=== PATIENT | female | born 1955 | race Caucasian/White ===

== ENCOUNTER 2022-02-01 21:00 | Inpatient (IN) | payer OTHER ==
[~2022-02-01] VITALS: Ht 149.9 cm; Wt 47.6 kg
--- NOTE | 2022-02-01 21:11 | NUR ---
Placed in room 01 . Placed on validation consultant, blood pressure machine and pulse oximeter. To gown for exam. Side rails up.
--- NOTE | 2022-02-01 21:17 | NUR ---
PT BIB [id number]. 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 PT HX OF PARKINSON'S DIS, PNUEMONIA. ALOC TO DAY "MORE THAN NORMAL"/ FAMILY. PT NON VERBAL. BG-75 500CC NS TO RIGHT F/A VIA 18G AT TKO/ MEDIC. JUAN PABLO- DAUGHTER [phone] PT ARRIVED EYES OPEN, MUTE. LAYING ON LEFT SIDE/ CONTRACTURED. POSITION OF COMFORT WITH PILLOWS FOR SUPPORT ON BED #1.
[2022-02-01 21:22] VITALS: BP_SYST 119
[2022-02-01] MEDS ORDERED: NACL 0.9% 1,000 ML IV ONE ×2 (21:30→22:45)
[2022-02-01] MEDS ORDERED: AUG875 PO (21:59)
[2022-02-01] MEDS ORDERED: CARB-290 PO (21:59)
[2022-02-01] MEDS ORDERED: DEXL60CA4 PO (21:59)
[2022-02-01] MEDS ORDERED: MOB7.5 PO (21:59)
[2022-02-01] MEDS ORDERED: PRED5TAB PO (21:59)
[2022-02-01] MEDS ORDERED: ASA81 PO (21:59)
[2022-02-01] MEDS ORDERED: ROTI1PAT7 TP (21:59)
[2022-02-01 22:12] LABS: BASOPHILS % (AUTO) 0.5 % (0.0-2.0); EOSINOPHILS # (AUTO) 0.1 K/uL (0.0-0.4); EOSINOPHILS % (AUTO) 1.5 % (0.0-4.0); HEMATOCRIT 31.9 % (36-48); HEMOGLOBIN 10.5 g/dL (12.0-16.0); LYMPHOCYTES # (AUTO) 1.4 K/uL (1.0-5.5); LYMPHOCYTES % (AUTO) 26.1 % (20.5-51.5); MEAN CORPUSCULAR HEMOGLOBIN 26 pg (27-31); MEAN CORPUSCULAR HGB CONC 33 % (32-36); MEAN CORPUSCULAR VOLUME 78 fL (79.0-98.0); MONOCYTES # (AUTO) 0.3 K/uL (0.0-1.0); MONOCYTES % (AUTO) 6.6 % (1.7-9.3); NEUTROPHILS # (AUTO) 3.5 K/uL (1.8-7.7); NEUTROPHILS % (AUTO) 65.3 % (40.0-70.0); PLATELET COUNT (AUTO) 333 K/uL (130-430); RED CELL DISTRIBUTION WIDTH 17.7 % (9.0-15.0); WHITE BLOOD COUNT (AUTO) 5.3 K/uL (4.8-10.8)
[2022-02-01 22:25] LABS: ANION GAP 7 (5-15); CALCIUM 8.1 mg/dL (8.4-11.0); CHLORIDE 110 mmol/L (98-107); CREATININE 0.44 mg/dL (0.55-1.30); GLUCOSE 71 mg/dL (70-99); POTASSIUM 3.3 mmol/L (3.5-5.1); SODIUM SERUM 143 mmol/L (136-145); UREA NITROGEN, BLOOD 20 mg/dL (8-21)
[2022-02-01 22:34] LABS: INR 1.2 (0.8-1.2); PROTHROMBIN TIME 11.6 SECS (9.5-12.5)
[2022-02-01 22:37] LABS: ALANINE AMINOTRANSFERASE 17 U/L (12-78); ALBUMIN 2.2 g/dL (3.4-4.8); ASPARTATE AMINOTRANSFERASE 17 U/L (10-37); TOTAL BILIRUBIN 0.4 mg/dL (0.0-1.0)
[2022-02-01 22:45] LABS: GFR AFRICAN AMERICAN 185 mL/min (>90)
--- NOTE | 2022-02-01 22:48 | NUR ---
INFLUENZA AND COVID SPECIMEN SENT TO LAB.
--- NOTE | 2022-02-01 22:56 | NUR ---
CODY Hendricks at bedside examining patient.
--- NOTE | 2022-02-01 23:00 | NUR ---
TRAVIS JUNG UA QUICK CATH COLLECTED AND SENT TO LAB
--- NOTE | 2022-02-01 23:00 | NUR ---
COVID AND FLU NASAL SWABS COLLECTED AND SENT TO LAB PER COATING TECHNICIAN
[2022-02-01 23:10] LABS: BILIRUBIN,URINE NEGATIVE (NEGATIVE); BLOOD, URINE 2+ (NEGATIVE); CLARITY/URINE CLEAR (CLEAR); COLOR,URINE ORANGE (YELLOW); GLUCOSE,URINE NEGATIVE (NEGATIVE); KETONES,URINE TRACE (NEGATIVE); LEUKOCYTE ESTERASE ,URINE NEGATIVE (NEGATIVE); NITRITE, URINE POSITIVE (NEGATIVE); PH,URINE 7.5 (5.0-8.0); PROTEIN URINE NEGATIVE (NEGATIVE)
[2022-02-01 23:29] LABS: BACTERIA,URINE MANY /HPF (None Seen)
[2022-02-02] MEDS ORDERED: cefTRIAXone 1 GM in D5W 50 ML IV ONE (01:30)
--- NOTE | 2022-02-02 01:30 | NUR ---
Admit bed requested Patient will be admitted to care of . Admitted to TELE unit. Diagnosis COVID PNA Inpatient (Yes or No) YES Observation (Yes or No) NO Orientation concerns or request close to nursing station (Yes or No) YES Covid Status POSITIVE On vent or bipap NO Isolation requirements NO Needs a sitter NO From Home (Yes or if No enter name of facility) YES Requires Dialysis (Yes or No) NO Med Rec Completed (Yes of No) PENDING
[2022-02-02] MEDS ORDERED: cefTRIAXone 1 GM VIAL ONE (01:45)
--- NOTE | 2022-02-02 04:20 | NUR ---
ADMISSION NOTE Received patient from ER via ricardo, received report from An ROBLES. Patient admitted with diagnosis of Covid PNA. Patient oriented to hospital routine, call light, toileting and safety-patient verbalized understanding.
--- NOTE | 2022-02-02 04:30 | NUR ---
TRAVIS JUNG PT STABLE FOR ADMIT TO ROOM #119B. TO ROOM VIA [facility] WITH RN ON MONITOR AND MASK. REPORT TO TRAVIS DEYR
[2022-02-02] MEDS: NACL 0.9% 1,000 ML IV SCH ×4 (04:49→22:18)
--- NOTE | 2022-02-02 05:00 | NUR ---
Initial RN notes Pt awake, non-verbal, VSS, afebrile. O2 sat 97% on 3L via NC. Sacral wound dressing changed noted small serousangenous drainage, no odor. L. heel pressure sore covered with optifoam dressing and floated on a pillow. IVF infusing R. FA 18G no s/s infiltration. Bed low, locked, siderails up x3, alarm on. Pt maintained NPO. Per ER nurse, daughter will warehouse order picker her belongings. To endorse to AM nurse.
[2022-02-02 05:18] VITALS: BP_SYST 112
--- NOTE | 2022-02-02 06:40 | NUR ---
Closing notes Pt asleep, no s/s distress noted. O2 3L via NC on. IVF infusing at ordered rate R. FA 18G clear and patent. Pt repostioned with pillow support. Mingo heels floated on a pillow. Call light within reach. Bed low, locked, siderails up x3, alarm on. Droplet isolation maintained. To endorse to AM nurse.
--- NOTE | 2022-02-02 07:57 | NUR ---
CONSULTATION PAGED REASON FOR CONSULTATION:COVID PNEUMONIA WAS CONSULT CALLED?Y -PERSON WHO WAS NOTIFIED:CINDY CONSULTING PHYSICIAN:YONY MORE( EXTRUDER TENDER) AGENCY OWNER SPECIALTY:PULMONARY AGENCY OWNER PHONE NUMBER:[phone] REQUESTING PHYSICIAN:TOBIAS PURCELL
[2022-02-02 08:00] VITALS: BP_SYST 130
[2022-02-02] MEDS ORDERED: DOCUSATE SODIUM 100 MG CAPSULE PO PRN (08:00)
[2022-02-02] MEDS ORDERED: AZITHROMYCIN 250 MG TABLET PO ONE (08:00)
[2022-02-02] MEDS ORDERED: ACETAMINOPHEN 325 MG TABLET PO PRN (08:00)
[2022-02-02] MEDS ORDERED: NALOXONE HCL 0.4 MG/ML AMP (NARCAN) IVP PRN ×2 (08:00)
[2022-02-02] MEDS ORDERED: MORPHINE 2 MG/ML INJ. SYRINGE IVP PRN (08:00)
[2022-02-02] MEDS ORDERED: LORazepam 2 MG/ML VIAL IVP PRN (08:00)
[2022-02-02] MEDS ORDERED: ZOLPIDEM TARTRATE 5 MG TABLET PO PRN (08:00)
[2022-02-02] MEDS ORDERED: ONDANSETRON HCL 4 MG/2 ML VIAL IVP PRN (08:00)
[2022-02-02] MEDS ORDERED: POTASSIUM CHLORIDE 20 MEQ TAB.PRT.SR PO PRN (08:00)
[2022-02-02] MEDS ORDERED: MAGNESIUM SULFATE 50 ML IV PRN (08:00)
[2022-02-02] MEDS ORDERED: MUPIROCIN 2% TOPICAL OINTMENT 22 GM NS PRN (08:00)
--- NOTE | 2022-02-02 08:40 | NUR ---
SPEECH THERAPIST TECHNICIAN OPERATIONS MANAGER/COORDINATOR Vicki responded to a generated social service , details "SW notification. Pt at suicidal risk". OPERATIONS MANAGER/COORDINATOR reviewed patient's admission assessment and the following was located; Wish to be - Unable to assess Suicidal thoughts- unable to assess [place] Suicide Severity Rating Scale initiated- unable to assess Refer to [employer] for Suicide Risk- YES OPERATIONS MANAGER/COORDINATOR consulted with assigned RN who stated this was a mistake on assessment. She shared patient is not suicidal.
--- NOTE | 2022-02-02 08:58 | NUR ---
Patient lying in bed quietly with eyes open. She arouses spontaneously. She denies any dyspnea or SOB. HOB elevated semifowler's position and pt suctioned orally. O2 @ 3l NC in use- O2 sat 100%. Removed moderate amount of white secretions. Pt is able to communicate wants et needs. Pt is NPO due to dysphagia- awaiting a swallow test via speech therapy for po consumption. Will continue to monitor.
[2022-02-02] MEDS: CARBIDOPA/LEVODOPA 25/100 MG TABLET PO SCH ×4 (09:00→20:03)
[2022-02-02] MEDS: ASPIRIN 81 MG TAB.CHEW PO SCH (09:00)
[2022-02-02] MEDS ORDERED: ROTIGOTINE TP SCH (09:00)
[2022-02-02] MEDS ORDERED: predniSONE 5 MG TABLET PO SCH (09:00)
[2022-02-02] MEDS: ENOXAPARIN SODIUM 40 MG/0.4 ML SYRINGE SUBCUT SCH (09:54)
[2022-02-02 11:42] VITALS: BP_SYST 98
[2022-02-02] MEDS ORDERED: IPRATROPIUM/ALBUTEROL SULFATE 3 ML AMPUL.NEB (DUONEB) INH PRN (15:15)
[2022-02-02 15:38] VITALS: BP_SYST 100
--- NOTE | 2022-02-02 15:46 | NUR ---
ST EVALUATION COMPLETED. ST TX NOT INDICATED AT THIS TIME. RECOMMEND NPO WITH ALTERNATIVE MEANS OF NUTRITION DUE TO POOR SWALLOW FUNCTION AND SAFETY.
--- NOTE | 2022-02-02 19:15 | NUR ---
OPENING NOTES Patient resting in bed - no s/s pain or distress noted. Respirations even and unlabored - head of bed elevated 3L NC. IV site patent - no s/s redness, infection, or infiltration. Bed locked and in lowest position. Bed alarm on.
[2022-02-02 20:00] VITALS: BP_SYST 98
[2022-02-02] MEDS: DEXAMETHASONE SOD PHOSPHATE 10 MG/ML VIAL IVP SCH (20:37)
[2022-02-03] VITALS: BP_SYST 100
[2022-02-03] MEDS: NACL 0.9% 1,000 ML IV SCH (02:30)
[2022-02-03 06:52] LABS: BASOPHILS % (AUTO) 0.2 % (0.0-2.0); HEMOGLOBIN 11.1 g/dL (12.0-16.0); LYMPHOCYTES # (AUTO) 0.5 K/uL (1.0-5.5); LYMPHOCYTES % (AUTO) 7.6 % (20.5-51.5); MEAN CORPUSCULAR HEMOGLOBIN 26 pg (27-31); MEAN CORPUSCULAR HGB CONC 33 % (32-36); MEAN CORPUSCULAR VOLUME 79 fL (79.0-98.0); MONOCYTES % (AUTO) 0.7 % (1.7-9.3); NEUTROPHILS # (AUTO) 5.7 K/uL (1.8-7.7); NEUTROPHILS % (AUTO) 91.5 % (40.0-70.0); PLATELET COUNT (AUTO) 281 K/uL (130-430); RED BLOOD CELL COUNT(AUTO) 4.33 MIL/uL (4.2-6.2); RED CELL DISTRIBUTION WIDTH 17.5 % (9.0-15.0); WHITE BLOOD COUNT (AUTO) 6.2 K/uL (4.8-10.8)
--- NOTE | 2022-02-03 07:25 | NUR ---
CLOSING NOTES Patient resting in bed - no s/s pain or distress noted. Respirations even and unlabored - head of bed elevated 3L NC. IV site patent - no s/s redness, infection, or infiltration. Bed locked and in lowest position. Bed alarm on. Approximately 0430 dressings and linens changed. Patient cleaned.
[2022-02-03 07:40] VITALS: BP_SYST 112
--- NOTE | 2022-02-03 07:42 | NUR ---
RN OPENING NOTE REPORT WAS ENDORSED BY NIGHT NURSE. PATIENT IS AWAKE AND ALERT PROVIDED WITH WARM BLANKET REQUESTED. VITAL SIGNS ARE STABLE EDUCATED SHADING PAINTER LIGHT FOR ASSISTANCE, CALL LIGHT IS WITH HER, PATIENT IS CONFUSED. PATIENT SHOWS NO SIGNS OF ANY DISTRESS. NO OTHER NEEDS AT THIS TIME.
[2022-02-03 08:04] LABS: CALCIUM 8.4 mg/dL (8.4-11.0); CREATININE 0.37 mg/dL (0.55-1.30); POTASSIUM 3.8 mmol/L (3.5-5.1)
[2022-02-03] MEDS: cefTRIAXone 1 GM in D5W 50 ML IV SCH (08:54)
[2022-02-03] MEDS: KCL 20 mEq in D5NS 1000 mL 1,000 ML IV SCH ×2 (08:54→21:00)
[2022-02-03] MEDS: ASPIRIN 81 MG TAB.CHEW PO SCH (08:55)
[2022-02-03] MEDS: CARBIDOPA/LEVODOPA 25/100 MG TABLET PO SCH ×4 (08:55→20:44)
[2022-02-03] MEDS: ENOXAPARIN SODIUM 40 MG/0.4 ML SYRINGE SUBCUT SCH (08:55)
[2022-02-03] MEDS ORDERED: AZITHROMYCIN 250 MG TABLET PO SCH (09:00)
--- NOTE | 2022-02-03 09:18 | NUR ---
medication patients scheduled medication given per order. po medication held duet o not safe failed swallow vaishnavi spoke with patients daughter and she states her mom just recently started to decline and unable to eat. she would like to talk to doctor about nutrition needs. patient shows no signs of any distress, educated collection administrator light as well as phone but patient is confused. both are with in reach. patient was able to speak to daughter on phone.
[2022-02-03 10:15] LABS: ALBUMIN 2.2 g/dL (3.4-4.8); BILIRUBIN,DIRECT 0.3 mg/dL (0.0-0.3); TOTAL BILIRUBIN 0.5 mg/dL (0.0-1.0)
--- NOTE | 2022-02-03 11:30 | NUR ---
rn rounding incotience care provided to patient. no signs of any distress, patient's breathing is equal and non labored. patient educated optical effects layout person light for assistance. call light is with her. patient keeps asking for water and pills educated not safe to have anything orally didnt pass her swallow eval she says ok. no other needs at this time.
[2022-02-03 12:27] VITALS: BP_SYST 134
--- NOTE | 2022-02-03 13:30 | NUR ---
rn rounding incontinence care provided to patient. patient shows no signs of any distress, no complaints at this time. call light is with her educated to use for assistance. no other needs at this time.
--- NOTE | 2022-02-03 15:23 | NUR ---
Dietitian Recommendations * Consider alternative nutrition support within 1 week (EN versus TPN/PPN to optimize gut health) * If planning for EN support (NGT/OGT/GT), consider Vital AF 1.2 at 45 ml/hr (goal rate), Free Water Flush: 150 ml Q6h Provides: 1296 kcal/day, 81 gm protein/day, and 1476 ml free water/day Meets: 91% of lower end of estimated caloric needs, 113% of upper end of estimated protein needs, and 105% of lower end of estimated fluid needs LP, RD Please refer to Nutrition Assessment for details. Addendum: 02/03/22 at [address] Amended: Links added.
[2022-02-03 16:00] VITALS: BP_SYST 117
--- NOTE | 2022-02-03 16:03 | NUR ---
dr. Villegas spoke with patient stated ok to speak with all three of her children, obtained her son and other daughter fely information and placed in the chart. i spoke with patient's daughter deana she wants to speak with md regard G -tube placement, the patient who is AO x3 states she does not want any tube, the son is also stating the he does not thing his mom would want the tube. I spoke with md and informed him he stated he will talk to patient tomorrow then the family. patient has no other needs at this time. call light is with her educate to use for assistance.
[2022-02-03] MEDS: DEXAMETHASONE SOD PHOSPHATE 10 MG/ML VIAL IVP SCH (18:51)
--- NOTE | 2022-02-03 18:52 | NUR ---
rn closing note patient is awake and alert, patient shows no signs of any distress, breathing is equal and non labored,patient has call light with her educated to use call light for assistance. no complaints no other needs
[2022-02-03 19:35] VITALS: BP_SYST 114
--- NOTE | 2022-02-03 19:35 | NUR ---
INITIAL NOTE AT INITIAL ASSESSMENT, PATIENT IS RESTING IN BED, STABLE, NO SIGNS OF RESPIRATORY DISTRESS. PATIENT VERBALIZES NO PAIN. PLAN OF CARE FOR THE EVENING IS COMMUNICATED WITH THE PATIENT. PATIENT IS SATURATING 100% ON ROOM AIR AT THIS TIME WITHOUT SUPPLEMENTAL OXYGEN NEEDED. BED IS LOCKED, ALARMED, AND AT THE LOWEST LEVEL. FALL, SAFETY, RESPIRATORY, ASPIRATION, AND ISOLATION PRECAUTIONS WILL BE IN PLACE THROUGHOUT THE SHIFT.
--- NOTE | 2022-02-03 20:30 | NUR ---
HYGIENE CARE HYGIENE CARE PROVIDED. PATIENT REPOSITIONED FOR COMFORT. CALL LIGHT PLACED WITHIN REACH. BED IS LOCKED, ALARMED, AND AT THE LOWEST LEVEL.
[2022-02-04 00:45] VITALS: BP_SYST 136
--- NOTE | 2022-02-04 06:35 | NUR ---
CLOSING NOTE PATIENT REMAINED WEAK THROUGHOUT THE SHIFT, PATIENT SLEPT WELL DURING THE SHIFT. AT THIS TIME, PATIENT IS RESTING IN BED, STABLE, NO SIGNS OF RESPIRATORY DISTRESS. BED IS LOCKED, ALARMED, AND AT THE LOWEST LEVEL. FALL, SAFETY, RESPIRATORY, ASPIRATION, AND ISOLATION PRECAUTIONS HAVE BEEN TAKEN THROUGHOUT THE SHIFT. WILL CONTINUE TO MONITOR UNTIL SHIFT REPORT IS GIVEN AT BEDSIDE TO AM NURSE.
[2022-02-04 08:17] LABS: BASOPHILS % (AUTO) 0.4 % (0.0-2.0); HEMATOCRIT 35.4 % (36-48); HEMOGLOBIN 11.6 g/dL (12.0-16.0); LYMPHOCYTES # (AUTO) 0.7 K/uL (1.0-5.5); LYMPHOCYTES % (AUTO) 11.1 % (20.5-51.5); MEAN CORPUSCULAR HEMOGLOBIN 26 pg (27-31); MEAN CORPUSCULAR HGB CONC 33 % (32-36); MEAN CORPUSCULAR VOLUME 78 fL (79.0-98.0); MONOCYTES # (AUTO) 0.2 K/uL (0.0-1.0); MONOCYTES % (AUTO) 2.7 % (1.7-9.3); NEUTROPHILS # (AUTO) 5.5 K/uL (1.8-7.7); NEUTROPHILS % (AUTO) 85.8 % (40.0-70.0); PLATELET COUNT (AUTO) 293 K/uL (130-430); RED BLOOD CELL COUNT(AUTO) 4.54 MIL/uL (4.2-6.2); RED CELL DISTRIBUTION WIDTH 17.5 % (9.0-15.0); WHITE BLOOD COUNT (AUTO) 6.4 K/uL (4.8-10.8)
--- NOTE | 2022-02-04 08:19 | NUR ---
DR. Grace AT [facility] MD SPOKE WITH PATIENT AND PATIENT WOULD LIKE TO TRY SWALLOW EVAL AGAIN STATES SHE FEELS BETTER TODAY.
[2022-02-04 08:28] VITALS: BP_SYST 105
[2022-02-04] MEDS: CARBIDOPA/LEVODOPA 25/100 MG TABLET PO SCH ×4 (08:29→20:50)
[2022-02-04] MEDS: ASPIRIN 81 MG TAB.CHEW PO SCH (08:29)
[2022-02-04] MEDS: cefTRIAXone 1 GM in D5W 50 ML IV SCH (08:29)
[2022-02-04] MEDS: ENOXAPARIN SODIUM 40 MG/0.4 ML SYRINGE SUBCUT SCH (08:30)
--- NOTE | 2022-02-04 08:30 | NUR ---
MEDICATION PATIENTS SCHEDULED MEDICATION GIVEN PER ORDER. PATIENT IS AWAKE AND ALERT, STATING SHE DOESN'T FEEL SICK ANYMORE THAT SHE FEELS ALOT BETTER THEN YESTERDAY. PATIENT PROVIDED WITH INCONTINENCE CARE. PATIENT EDUCATED HORSERADISH GRINDER LIGHT AND PHONE. BOTH ARE WITH HER SO SHE CAN REACH THEM. NO COMPLAINTS AT THIS TIME. NO SIGNS OF ANY DISTRESS. PATIENT IS ON ROOM AIR AND SPO2 AT 98%
[2022-02-04 09:11] LABS: ALBUMIN 2.4 g/dL (3.4-4.8); CALCIUM 8.7 mg/dL (8.4-11.0); CREATININE 0.32 mg/dL (0.55-1.30); POTASSIUM 3.9 mmol/L (3.5-5.1); TOTAL BILIRUBIN 0.3 mg/dL (0.0-1.0)
[2022-02-04 12:00] VITALS: BP_SYST 113
[2022-02-04] MEDS: KCL 20 mEq in D5NS 1000 mL 1,000 ML IV SCH (13:35)
--- NOTE | 2022-02-04 13:43 | NUR ---
iv fluid patients iv fluid hung per order. patient is awake and alert laying in bed, incontinence care provided as needed. patient has no other needs at this time. Call light and phone are with educated to use for assistance.
[2022-02-04 16:00] VITALS: BP_SYST 112
--- NOTE | 2022-02-04 17:14 | NUR ---
medication Patients scheduled medication given per order. Patient is awake and alert laying in bed no complaints at this time. all safety precautions in place, call light is with her. incontinence care provided.
[2022-02-04] MEDS: DEXAMETHASONE SOD PHOSPHATE 10 MG/ML VIAL IVP SCH (18:58)
--- NOTE | 2022-02-04 19:32 | NUR ---
rn closing note report was endorsed to night nurse. no signs of any distress, breathing is equal and non labored. patient has all safety precaution in place. no other needs at this time. patient has no complaints at this time.
--- NOTE | 2022-02-04 19:42 | NUR ---
OPENING NOTES: Patient received from AM shift. Patient is unable to communicate needs no s/s of distress is noted at this time. Patient is on RA with chest rise even and unlabored. Patient is on tele monitoring with NSR. Safety measures are in place as per protocol. Will resume care and continue to monitor throughout the shift.
[2022-02-04 20:00] VITALS: BP_SYST 107
[2022-02-05 00:43] VITALS: BP_SYST 108
[2022-02-05] MEDS: KCL 20 mEq in D5NS 1000 mL 1,000 ML IV SCH ×2 (05:55→18:30)
--- NOTE | 2022-02-05 06:44 | NUR ---
CLOSING NOTES: Patient is in bed resting no s/s of distress is noted. Patient is on the phone with her son and does not verbalize any needs at this time. Safety measures are in place as per protocol and all current shift needs have been met at this time. Patient remains NPO pending swallow eval. Will differ further care to AM shift for continuity of care.
[2022-02-05 07:01] LABS: BASOPHILS % (AUTO) 0.4 % (0.0-2.0); HEMATOCRIT 35.6 % (36-48); HEMOGLOBIN 11.6 g/dL (12.0-16.0); LYMPHOCYTES # (AUTO) 0.5 K/uL (1.0-5.5); MEAN CORPUSCULAR HEMOGLOBIN 25 pg (27-31); MEAN CORPUSCULAR HGB CONC 33 % (32-36); MEAN CORPUSCULAR VOLUME 78 fL (79.0-98.0); MONOCYTES # (AUTO) 0.1 K/uL (0.0-1.0); NEUTROPHILS # (AUTO) 3.8 K/uL (1.8-7.7); NEUTROPHILS % (AUTO) 84.6 % (40.0-70.0); PLATELET COUNT (AUTO) 267 K/uL (130-430); RED BLOOD CELL COUNT(AUTO) 4.59 MIL/uL (4.2-6.2); RED CELL DISTRIBUTION WIDTH 18.3 % (9.0-15.0); WHITE BLOOD COUNT (AUTO) 4.5 K/uL (4.8-10.8)
[2022-02-05] MEDS: cefTRIAXone 1 GM in D5W 50 ML IV SCH (07:01)
[2022-02-05 07:59] LABS: CALCIUM 8.4 mg/dL (8.4-11.0); CREATININE 0.38 mg/dL (0.55-1.30); POTASSIUM 3.9 mmol/L (3.5-5.1)
[2022-02-05 08:00] VITALS: BP_SYST 113
[2022-02-05] MEDS: CARBIDOPA/LEVODOPA 25/100 MG TABLET PO SCH ×4 (09:00→22:01)
[2022-02-05] MEDS: ASPIRIN 81 MG TAB.CHEW PO SCH (09:00)
[2022-02-05] MEDS: ENOXAPARIN SODIUM 40 MG/0.4 ML SYRINGE SUBCUT SCH (09:49)
[2022-02-05 10:14] VITALS: BP_SYST 108
[2022-02-05 12:00] VITALS: BP_SYST 109
--- NOTE | 2022-02-05 13:39 | NUR ---
ST EVALUATION COMPLETED. ST TX NOT INDICATED AT THIS TIME. RECOMMEND PO DIET OF PUREE/NECTAR THICK LIQUIDS WITH 1:1 FEEDER AND FULL ASPIRATION PRECAUTIONS.
--- NOTE | 2022-02-05 14:04 | NUR ---
Discharge Planning: DCP faxed pt referral to [facility] [phone] patient is covid positive. DCP to follow up.
[2022-02-05 16:00] VITALS: BP_SYST 111
[2022-02-05] MEDS: DEXAMETHASONE SOD PHOSPHATE 10 MG/ML VIAL IVP SCH (18:30)
[2022-02-05 20:00] VITALS: BP_SYST 111
[2022-02-05] MEDS: MORPHINE 2 MG/ML INJ. SYRINGE IVP PRN (22:02)
[2022-02-06] VITALS: BP_SYST 103
[2022-02-06] MEDS: MORPHINE 2 MG/ML INJ. SYRINGE IVP PRN ×2 (06:25→21:20)
[2022-02-06 06:54] LABS: BASOPHILS % (AUTO) 0.1 % (0.0-2.0); HEMATOCRIT 35.6 % (36-48); HEMOGLOBIN 11.8 g/dL (12.0-16.0); LYMPHOCYTES # (AUTO) 0.8 K/uL (1.0-5.5); LYMPHOCYTES % (AUTO) 12.7 % (20.5-51.5); MEAN CORPUSCULAR HEMOGLOBIN 25 pg (27-31); MEAN CORPUSCULAR HGB CONC 33 % (32-36); MEAN CORPUSCULAR VOLUME 77 fL (79.0-98.0); MONOCYTES # (AUTO) 0.3 K/uL (0.0-1.0); MONOCYTES % (AUTO) 5.8 % (1.7-9.3); NEUTROPHILS # (AUTO) 4.8 K/uL (1.8-7.7); NEUTROPHILS % (AUTO) 81.4 % (40.0-70.0); PLATELET COUNT (AUTO) 251 K/uL (130-430); RED BLOOD CELL COUNT(AUTO) 4.62 MIL/uL (4.2-6.2); RED CELL DISTRIBUTION WIDTH 18.4 % (9.0-15.0); WHITE BLOOD COUNT (AUTO) 5.9 K/uL (4.8-10.8)
[2022-02-06] MEDS ORDERED: DEC4 PO (07:04)
[2022-02-06 07:21] LABS: ALBUMIN 2.4 g/dL (3.4-4.8); BILIRUBIN,DIRECT 0.1 mg/dL (0.0-0.3); CALCIUM 8.4 mg/dL (8.4-11.0); CREATININE 0.36 mg/dL (0.55-1.30); POTASSIUM 4.1 mmol/L (3.5-5.1); TOTAL BILIRUBIN 0.4 mg/dL (0.0-1.0)
[2022-02-06 08:00] VITALS: BP_SYST 95
--- NOTE | 2022-02-06 09:00 | NUR ---
Miss Cortes has been assessed as indicated. She has been tearful. with every interaction. She has been incont of bladder and voids frequently in large amounts. She has been fed break fast. she eats very poorly she pockets food and often spits it out. This promotion writer spoke with Manda her daughter for an update. She stated that she does not want Miss Cortes to go to a SNF. She wants her to return to her home and she will be the care provider.
[2022-02-06] MEDS: CARBIDOPA/LEVODOPA 25/100 MG TABLET PO SCH ×4 (10:59→21:19)
[2022-02-06] MEDS: ASPIRIN 81 MG TAB.CHEW PO SCH (10:59)
[2022-02-06] MEDS: ENOXAPARIN SODIUM 40 MG/0.4 ML SYRINGE SUBCUT SCH (10:59)
[2022-02-06 12:00] VITALS: BP_SYST 107
--- NOTE | 2022-02-06 15:05 | NUR ---
Discharge Planning: DCP faxed pt referral to [facility] [phone] DCP to follow up Addendum: 02/06/22 at 1554 by Kelly Villarreal DP Kaitlyn from [facility] [phone] will accept pt pending room, DCP made CM aware.
[2022-02-06] MEDS: DEXAMETHASONE SOD PHOSPHATE 10 MG/ML VIAL IVP SCH (19:20)
--- NOTE | 2022-02-06 19:30 | NUR ---
Hand off has been given to Jenna
--- NOTE | 2022-02-06 19:36 | NUR ---
OPENING NOTES: Patient received from AM shift. Patient is AA&Ox2-3 but does not communicate needs unless asked, no s/s of distress noted at this time. Patient is on RA and tolerating well and is on tele monitoring with NSR. Patient is on Droplet isolation due to positive COVID DX. Patient is incontinent of B&B but urine output is adequate voids frequent large amount. Safety measures are in place as per protocol. Will resume care and continue to monitor throughout the shift.
[2022-02-06 20:00] VITALS: BP_SYST 115
--- NOTE | 2022-02-06 20:30 | NUR ---
this radio script writer called Miss Cortes's daughter Manda at [phone] this was the number Manda provided. A voice mail was left stating the purpose of the call was to clarify with Manda the current state of her mother's health to be sure she was aware and of and fully understood that Miss Cortes requires total care at this time. There was no answer . A message regarding this was left. Please note that Manda's voicemail states that she had HD 3x week and is not available for phone calls
[2022-02-06] MEDS: KCL 20 mEq in D5NS 1000 mL 1,000 ML IV SCH (21:19)
[2022-02-07 00:15] VITALS: BP_SYST 147
[2022-02-07] MEDS: MORPHINE 2 MG/ML INJ. SYRINGE IVP PRN ×2 (05:14→17:24)
--- NOTE | 2022-02-07 06:22 | NUR ---
CLOSING NOTES: Patient is in bed resting no S/S of distress at this time. Patient remains on droplet precautions and is on tele monitoring. All current shift needs have been met at this time and safety measures are in place at this time. Discharge planning has been noted and no calls from the family has been received this shift. Will differ further care to AM shift nurse for continuity of care.
[2022-02-07 06:48] LABS: BASOPHILS % (AUTO) 0.3 % (0.0-2.0); HEMATOCRIT 34.8 % (36-48); HEMOGLOBIN 11.5 g/dL (12.0-16.0); LYMPHOCYTES % (AUTO) 17.1 % (20.5-51.5); MEAN CORPUSCULAR HEMOGLOBIN 26 pg (27-31); MEAN CORPUSCULAR HGB CONC 33 % (32-36); MEAN CORPUSCULAR VOLUME 78 fL (79.0-98.0); MONOCYTES # (AUTO) 0.3 K/uL (0.0-1.0); MONOCYTES % (AUTO) 5.7 % (1.7-9.3); NEUTROPHILS # (AUTO) 4.7 K/uL (1.8-7.7); NEUTROPHILS % (AUTO) 76.9 % (40.0-70.0); PLATELET COUNT (AUTO) 283 K/uL (130-430); RED BLOOD CELL COUNT(AUTO) 4.48 MIL/uL (4.2-6.2); RED CELL DISTRIBUTION WIDTH 18.3 % (9.0-15.0); WHITE BLOOD COUNT (AUTO) 6.1 K/uL (4.8-10.8)
[2022-02-07 08:20] LABS: ALBUMIN 2.3 g/dL (3.4-4.8); BILIRUBIN,DIRECT 0.2 mg/dL (0.0-0.3); CALCIUM 8.4 mg/dL (8.4-11.0); CREATININE 0.4 mg/dL (0.55-1.30); POTASSIUM 4.3 mmol/L (3.5-5.1); TOTAL BILIRUBIN 0.4 mg/dL (0.0-1.0)
[2022-02-07] MEDS: ASPIRIN 81 MG TAB.CHEW PO SCH (09:50)
[2022-02-07] MEDS: CARBIDOPA/LEVODOPA 25/100 MG TABLET PO SCH ×3 (09:50→17:22)
[2022-02-07] MEDS: ENOXAPARIN SODIUM 40 MG/0.4 ML SYRINGE SUBCUT SCH (09:50)
--- NOTE | 2022-02-07 12:24 | NUR ---
This consumer loan underwriter spoke with Manda Cortes's daughter [phone].This call was placed to verify that Manda understood that Miss Cortes requires total care at this time. It was explained that all aspects of daily living have to be done for her. She states that she understood the situation and expressed that this was her baseline prior to being admitted. She stated that she wants HHC with [facility] and is requesting that it be palliative. She is anticipating a She understands that Miss Cortes will be DC this evening or tomorrow at the latest. She will need to have HD this afternoon and then will be ready to receive her mother.
[2022-02-07 13:58] VITALS: BP_SYST 118
--- NOTE | 2022-02-07 14:01 | NUR ---
Discharge Planning: DCP faxed pt referral to [facility] [phone] to resume care. DCP to follow up. Addendum: 02/07/22 at 1640 by Kelly Villarreal DP [facility] [phone] accepting patient
[2022-02-07 16:02] VITALS: BP_SYST 92
[2022-02-07] MEDS: KCL 20 mEq in D5NS 1000 mL 1,000 ML IV SCH (16:43)
[2022-02-07] MEDS: DEXAMETHASONE SOD PHOSPHATE 10 MG/ML VIAL IVP SCH (17:23)
[2022-02-07 20:03] VITALS: BP_SYST 110
--- NOTE | 2022-02-07 22:00 | NUR ---
DISCHARGED: Patient was discharged and picked up by henrietta Ana and was taken in a private vehicle. Follow up care as been scheduled with . Family was provided discharged in formation and instructions. Ana signed discharge paper work for the patient. Addendum: 02/08/22 at 0641 by [employer] moisture conditioner operator Daughter name is Manda
--- NOTE | 2022-02-08 07:29 | NUR ---
PHYSICAL THERAPY CO-SIGN The Physical Therapy Progress Notes documented by Operator Command Support Systems have been reviewed. Reviewed/Co-Signed by: Jevon Fuentes Documentation Done by: ANNELISE PLASENCIA PTA Addendum: 02/08/22 at 8902 by Jevon Fuentes PT Amended: Links added.
== END 2022-02-07 22:40 | disposition home health service (06) | DRG 177 ==
LOC: SED 21:00 → STU 02-02 01:28
PROVIDERS: ADMIT General Practice; ATTEND General Practice
PROC: XW033E5 Introduction of Remdesivir Anti-infective into Peripheral Vein, Percutaneous Approach, New Technology Group 5 (ICD-10-PCS; principal; 2022-02-02)
DX: U07.1 COVID-19 (principal); E43 Unspecified severe protein-calorie malnutrition; R53.2 Functional quadriplegia; J96.01 Acute respiratory failure with hypoxia; J12.82 Pneumonia due to coronavirus disease 2019; N39.0 Urinary tract infection, site not specified; R64 Cachexia; D63.8 Anemia in other chronic diseases classified elsewhere; E87.6 Hypokalemia; G20 Parkinson's disease; M06.9 Rheumatoid arthritis, unspecified; L89.159 Pressure ulcer of sacral region, unspecified stage; R13.10 Dysphagia, unspecified; Z74.01 Bed confinement status; Z68.21 Body mass index [BMI] 21.0-21.9, adult
CPT/HCPCS: 36415; 71045; 80048; 80053; 80076; 81000; 83036; 83605; 83735; 84484; 85025; 85610-TC; 85730-TC; 87040; 87081; 87086; 92610-GN; 93005; 94640; 94760; 96361; 96365; 97110-GP; 97163-GP; 97530-GP; 99285; G0378; J0696; J1100; J1650; J2270; J7030; J7050; J7060